=== PATIENT | female | born 1960 | race Caucasian/White ===

== ENCOUNTER 2016-11-01 13:28 | Emergency (ER) | payer BC, OTHER ==
--- NOTE | 2016-11-01 14:29 | ERNOTE ---
Medical Problem HPI - Narrative Date of Service: 11/01/16 - General Chief Complaint: Flu Symptoms Time Seen by Provider: 11/01/16 14:10 Source: patient Exam Limitations: no limitations - Immun/Allergies/Home Medications Immunizations: IMMUNIZATION HX Immunizations Up to Date Yes History of Influenza Vaccine Yes Hx Pneumococcal Vaccination No Allergies/Adverse Reactions: Allergies azithromycin Allergy (Intermediate, Verified 11/01/16 14:10) Vomiting meat Adverse Reaction (Intermediate, Uncoded 11/01/16 14:10) Diarrhea Home Medications: HOME MEDICATIONS HYDROcodone/ACETAMINOPHEN [Hubbard 5-325] 1 - 2 tab PO QID PRN #30 tab 11/01/16 [ Last Taken Unknown] - History of Present History Narrative: Has had a cough for about a week. Not especially worse, but not better either. Up until a couple of days ago, was coughing up clear phlegm. It the last two days, non productive cough. Feels warm, but hasn't taken her temperature at home. Slight headache, aches all over and feels very fatigued. Smokes. Timing: constant Severity: mild, moderate Modifying Factors - (Improves): Present: other - nothing Modifying Factors - (Worsens): Present: movement Review of Systems - Review of Systems Constitutional: Present: fatigue, malaise, decreased activity level EYE: Present: no symptoms reported ENT: Present: nose congestion, nasal drainage Respiratory: Present: cough Cardiology: Present: no symptoms reported Gastrointestinal/Abdominal: Present: no symptoms reported Genitourinary: Present: no symptoms reported Musculoskeletal: Present: no symptoms reported Skin: Present: no symptoms reported Neurological: Present: no symptoms reported Endocrine: Present: no symptoms reported, unexplained weight loss Psych: Present: no symptoms reported All Other Systems: All systems neg except as marked - Patient's Past Medical History Patient History - Medical: Other - breast lumpectomy, suicide attempt Patient History - Cardiac/Respiratory: No pertinent hx Patient History - Cancer: No Hx of Cancer Patient History - Surgical Procedures: T & A Patient History - Other: None - Social History Living Situations: home Psych History: No pertinent hx, Hx of Suicide Attempt Smoking Status: Current every day smoker Alcohol Use: none Drug Use: none - Immunizations Immunizations Up to Date: Yes Hx Pneumococcal Vaccination: No History of Influenza Vaccine: Yes Physical Exam - Physical Exam General Appearance: Present: wd/wn, alert, no apparent distress Eye Exam: Normal inspection: bilateral, PERRL: bilateral, EOMI: bilateral Ears, Nose, Throat: Present: normal ENT inspection, hearing grossly normal Neck: Present: normal inspection, nontender. Absent: lymphadenopathy (R), lymphadenopathy (L) Respiratory: Present: no respiratory distress, normal breath sounds Cardiovascular/Chest: Present: regular rate, rhythm, no murmur Gastrointestinal/Abdominal: Present: normal bowel sounds, nontender, nondistended, soft, no organomegaly Back Exam: Present: normal inspection Extremity Exam: Present: normal inspection, no edema Neurological Exam: Present: alert, oriented, normal mood/affect Skin Exam: Present: normal color, warm/dry Lymphatic Exam: Present: no adenopathy ED Progress - Results and Orders Patient's Lab Results:: I have reviewed the patient's lab results. - Vital Signs Patient's Vital Signs:: I have reviewed the patient's vital signs. Vital Signs: Vital Signs 11/01/16 14:07 Pulse Rate 83 Respiratory 20 Rate Blood Pressure 131/79 O2 Sat by Pulse 93 Oximetry - X-Ray X-Ray #1 X-Ray: chest Interpretation: Interp. by me - non acute - Progress/Reassessment Chief Complaint: Flu Symptoms Departure - Departure Clinical Impression: Viral respiratory illness Disposition: Home self-care Instructions: Adenovirus, Acute Bronchitis Additional Instructions: Followup with your health care provider towards the end of next week. Referrals: Kerrie Umanzor FNP [Primary Care Provider] - Prescriptions: HYDROcodone/ACETAMINOPHEN [Hubbard 5-325] 1 - 2 tab PO QID PRN #30 tab PRN Reason: discomfort OR cough.
[2016-11-01 15:25] VITALS: BP 109/58
== END 2016-11-01 15:20 | disposition home or self-care (01) ==
LOC: ER 13:28
DX: J06.9 Acute upper respiratory infection, unspecified (principal); F17.210 Nicotine dependence, cigarettes, uncomplicated